=== PATIENT | female | born 1990 | race African-American/Black ===

== ENCOUNTER 2022-03-12 19:02 | Emergency (ER) | payer OTHER ==
--- OUTSIDE RECORDS SUMMARY | 2022-03-12 19:05 | XMS REPORT | Continuity of Care Document ---
:[address] [facility] t Address [address] [place] [address] [address] [place] [address] Care Team Providers Name Role Phone LIZZ SHIPMAN Attending Clinician Unavailable Imelda JOHNSON Attending Clinician Unavailable Payers Payer Name Policy Type Policy Number Effective Date Expiration Date S [facility] [id number] 2020 PPO/POS 00:00:00 Problems This patient has no known problems. Allergies, Adverse Reactions, Alerts Allergy Allergy Status Severity Reaction(s) Onset Inactive Treating Comm ents Source Name Type Date Date Clinician NO KNOWN Drug Active [facility] ALLERG[facility] Medications This patient has no known medications. Procedures This patient has no known procedures. Encounters Start End Encounter Admission Attending Care Care Encounter Source Date/Time Date/Time Type Type Clinicians Facility Department ID 2022-01-02 2022-01-02 Emergency E UMBERTO, SHAYY [id number] 12:31:00 16:38:00 [facility] 2020-12-21 2020-12-21 Outpatient Jocelyn JOHNSON [facility] [id number] Univers 12:00:00 12:00:00 ROMÁN [id number] [facility] 2020-12-21 2020-12-21 Outpatient Jocelyn JOHNSON [facility] [id number] Univers 12:00:00 12:00:00 ROMÁN [facility] 2020-11-30 2020-11-30 Outpatient Jocelyn JOHNSON [facility] [id number] Univers 12:20:00 12:20:00 ROMÁN [facility] Results This patient has no known results.
--- NOTE | 2022-03-12 19:16 | ER ---
Nurse's Notes [facility] Name: Charley Oglesby Age: 31 yrs Sex: Female : 1990 Arrival Date: 03/12/2022 Time: 19:07 Bed Waiting Private MD: Diagnosis: ED Course: 03/12 19:07 Patient arrived in ED. jesse Administered Medications: No medications were administered Outcome: 19:15 Patient left the ED. ld1 Signatures: Radha Houston RN RN ld1 Nereida Willis
== END 2022-03-12 19:15 | disposition left against medical advice (07) ==
LOC: ER 19:02
DX: Z02.89 Encounter for other administrative examinations (principal)